=== PATIENT | female | born 1955 | race Caucasian/White ===

== ENCOUNTER → 2022-04-12 | Outpatient (CLI) | payer OTHER | LOC: LAB SHORT 18:32 | DX: D48.5 Neoplasm of uncertain behavior of skin (principal); L57.0 Actinic keratosis; L57.8 Other skin changes due to chronic exposure to nonionizing radiation; L82.0 Inflamed seborrheic keratosis; Z85.828 Personal history of other malignant neoplasm of skin; Z71.89 Other specified counseling | CPT/HCPCS: 87070; 87205 ==

== ENCOUNTER 2022-06-12 08:41 | Day surgery (SDC) | payer MEDICARE, OTHER | END 2022-06-12 23:41 | disposition home or self-care (01) | LOC: MOI MAM 08:41 | DX: R92.0 Mammographic microcalcification found on diagnostic imaging of breast (principal) | CPT/HCPCS: 19081; A4648 ==

== ENCOUNTER → 2023-02-08 | Outpatient (CLI) | payer OTHER | END | disposition home or self-care (01) | LOC: LAB SHORT 12:15 → LAB 12:15 | DX: N39.0 Urinary tract infection, site not specified (principal) | CPT/HCPCS: 87077; 87086; 87186 ==

== ENCOUNTER → 2023-04-09 | Outpatient (CLI) | payer OTHER | LOC: LAB 17:36 → LAB SHORT 17:36 | DX: N39.0 Urinary tract infection, site not specified (principal) | CPT/HCPCS: 87077; 87086; 87186 ==

== ENCOUNTER → 2025-02-04 | Outpatient (CLI) | payer OTHER | LOC: LAB 10:03 → LAB SHORT 10:03 | DX: N39.0 Urinary tract infection, site not specified (principal) | CPT/HCPCS: 87077; 87086; 87186 ==